=== PATIENT | female | born 1930 | race Caucasian/White ===

== ENCOUNTER 2018-11-15 05:35 | Inpatient (IN) | payer OTHER ==
[~2018-11-15] VITALS: Ht 170.2 cm; Wt 68.0 kg
[2018-11-15 06:02] LABS: BE(vivo) 2.2 mmol/L (-2 to +3); HCO3 27.9 mmol/L (22.0-26.0); PCO2 47.1 mmHg (35.0-45.0); pH 7.391 (7.360-7.450); sO2 88.3 % (92.0-98.0)
[2018-11-15 06:03] LABS: PO2 55.3 mmHg (80.0-100.0)
[2018-11-15 06:12] LABS: BASOPHILS 0.7 % (0.0-2.0); EOSINOPHILS 1.5 % (0.0-3.0); HEMATOCRIT 44.2 % (37.0-47.0); HEMOGLOBIN 14.5 gm/dL (12.0-15.0); LYMPHOCYTES 10.7 % (24.0-44.0); MCH 27.8 pg (26.0-34.0); MCHC 32.7 g/dL (28.0-37.0); MCV 84.8 fL (80.0-100.0); MONOCYTES 6.9 % (1.0-8.0); PLATELET COUNT 230 thou/uL (150-400); POLYS 80.2 % (36.0-66.0); RBC 5.22 mil/uL (4.20-5.00); RDW 15.3 % (10.5-14.5); WBC 11.2 thou/uL (4.0-11.0)
[2018-11-15 06:36] LABS: ANION GAP 8 mmol/L (7-16); BUN 34 mg/dL (7-18); CALCIUM 9.4 mg/dL (8.5-10.1); CHLORIDE 102 mmol/L (98-107); CO2 31 mmol/L (21-32); CREATININE 1.2 mg/dL (0.6-1.0); GLUCOSE 132 mg/dL (74-106); POTASSIUM 3.8 mmol/L (3.5-5.1); SODIUM 141 mmol/L (136-145)
[2018-11-15 06:40] LABS: ALBUMIN 3.8 g/dL (3.4-5.0); DIRECT BILIRUBIN < 0.1 mg/dL (<0.1-0.3); LIPASE 135 U/L (73-393); SGOT 13 U/L (15-37); SGPT 7 U/L (30-65); TOTAL BILIRUBIN 0.4 mg/dL (<0.1-1.0); TOTAL PROTEIN 7.6 g/dL (6.4-8.2)
[2018-11-15 08:09] VITALS: BP 102/101
[2018-11-15 08:46] VITALS: BP 102/101
[2018-11-15 16:14] VITALS: BP 135/75
--- NOTE | 2018-11-15 18:09 | NUR ---
PATIENT ADMITTED TO ROOM AT THIS TIME. SHE IS ALERT ORIENTED X4. DENIES PIAN. DOES HAVE SOB WITH EXERTION. EDUCATED ON NEED TO CALL FOR HELP WITH TRANSFERS. SHE IS STEADY ON HER FEET BUT WHEN SHE HAS SOB SHE BECOMES UNSTEADY. ON OXYGEN 2L. STATES AT HOME SHE HAS OXYGEN 2L PRN AND HAS NOT USED IT FOR A WHILE. ALSO STATES SHE DOES NOT TAKE ANY MEDICATION AT HOME AND DOES NOT HAVE A PHARMACY. STERIODS STARTED. WILL CONT WITH PLAN OF CARE.
[2018-11-15 20:15] VITALS: BP 158/78
--- NOTE | 2018-11-16 03:55 | NUR ---
RESTING QUIETLY TONIGHT. SHE CONITNUES TO WEAR HER OXYGEN. COOPERATIVE AND FIRENDLY. HOWEVER SHE DOES HAVE AM EXAGERRATED STARTLE REFLEX. CAREPLAN REVIEWED. ENCOURAGED TO CALL FOR ASSIST OUT OF BED. DENIES PAIN, AND HAS STATED MANY TIMES TONIGHT THAT SHE IS FEELING SO MUCH BETTER TONIGHT.
[2018-11-16 04:38] VITALS: BP 145/78
[2018-11-16 07:52] VITALS: BP 136/97
--- NOTE | 2018-11-16 12:39 | NUR ---
REC PT FROM STAFF AROUND 1215, SHE IS A&0X4, DAUGHTER IS AT BEDSIDE, GAVE HER A SNACK, TOOK PT'S VS, B/P ELEVATED D/T AMBULATING FROM W/C TO BED TO CHAIR. GAVE HER DEMO PEANUT SHELLER LIGHT AND LIGHT CONTROL, ENCOURAGED BOTH TO USE CALL LIGHT FOR ANY NEEDS
--- NOTE | 2018-11-16 13:19 | NUR ---
PATIENT TRANSFERRED FROM 3W 350 TO SICU 226, PATIENT ACCOMPANIED BY DAUGHTER, O2@2L/NC, DENIES PAIN OR DISCOMFORT, A&OX4, UP AD JOHANN WITH SBA, MEDICATION AND BLOOD SUGAR MONITORING COMPLETED, MADE COMFORTABLE AND ORIENTED TO UNIT AND STAFF, PERSONAL BELONGINGS AND CALL LIGHT IN REACH, WILL CONTINUE TO MONITOR
--- NOTE | 2018-11-16 13:28 | EKG ---
[place] [address] [address] [facility] [place] [address] ELECTROCARDIOGRAM REPORT Name: CARITO WHEELER Room #: 225-P ADM IN M.R.#: [id number] ������������������ Admission: 11/15/18 ������������������ Attend Phys: Nasreen Madrid Discharge: ������������������ Date of : [birth year] Report #: [id number] ����������������������������������������������������������������� [id number] THIS REPORT FOR: //name// [facility] ED Test Date: 2018-11-15 Test Time: 05:54:52 Pat Name: CARITO WHEELER Department: Room: [facility] Gender: F Sash Maker: PETER : 1930 Requested By: Candis Rene Order Number: [id number] MD: Larry Murillo Measurements Intervals [place] Rate: 108 P: 158 SC: 264 QRS: -85 QRSD: 149 T: 32 QT: 374 QTc: 502 Interpretive Statements Sinus tachycardia Prolonged SC interval Right bundle branch block No previous ECG available for comparison Electronically Signed On 11-16-2018 13:27:48 CDT by Larry Murillo [email or web address] ��������������������������������������������� <ELECTRONICALLY SIGNED> ���������������������������������������� By: Larry Murillo MD, [facility] ��������������������������������������������� 11/16/18 [id number] [id number] Larry Murillo MD, FACC /EPI
--- NOTE | 2018-11-16 13:45 | NUR ---
PATIENT TRANSFERED TO [facility]. DAUGHTER HERE WITH PATIENT. NO COMPLAINT OF PAIN. AOX3.
--- NOTE | 2018-11-16 18:55 | HC ---
[facility] [place] [address] CONSULTATION Name: CARITO WHEELER Room #: 225-P ADM IN M.R.#: [id number] Admission: 11/15/18 ������������������ Attend Phys: Nasreen Madrid Discharge: ������������������ Date of : [birth year] Report #: [id number] THIS REPORT FOR: //name// CC: FAM physician/PCP Nasreen Madrid REFERRING PHYSICIAN: Dr. Madrid. REASON FOR REFERRAL: Lung nodules. HISTORY OF PRESENT ILLNESS: The patient is an 88-year-old white female who presents to the ED with nausea, vomiting. Imaging study showed multiple lung nodules. A pulmonary consultation was requested. The patient states that she has been told that she has COPD for a number of years. She has been using oxygen for also several years. She has never seen a child and family therapist. She was in her usual state of health until in the morning prior to presentation when she started to develop increasing nausea and vomiting, at least 8 times. Otherwise, the patient denies any recent night sweats or chills. Denies any hemoptysis. The patient denies any recent weight loss. She has smoked for many years, but quit few years ago. PAST MEDICAL HISTORY: As mentioned above, COPD diagnosed few years ago, uses oxygen p.r.n. for the last several years; history of heart surgery, details unknown; the patient is felt to have valvular heart repair; tobacco use as mentioned above. ALLERGIES: None to medications. MEDICATIONS: Reviewed. FAMILY HISTORY: Noncontributory. SOCIAL HISTORY: Tobacco use as mentioned above. The patient denies any alcohol use. She is . She lives independently. She has children who lives in town. REVIEW OF SYSTEMS: As mentioned above, otherwise 10-point system review negative. PHYSICAL EXAMINATION: GENERAL: She is awake, alert, in no distress. VITAL SIGNS: Temperature is 98 degrees Fahrenheit, pulse is 90, respiratory [facility] [address] [place] [address] CONSULTATION Name: CARITO WHEELER Room #: 225-P [facility]#: [id number] Admission: 11/15/18 ������������������ Attend Phys: Nasreen Madrid Discharge: ������������������ Date of : [birth year] Report #: [id number] rate is 24, blood pressure 100/87 mmHg, saturation 94%. HEENT: Normocephalic, atraumatic. NECK: Supple, without lymphadenopathy or thyromegaly. CHEST: Breath sounds are moderate with mild expiratory wheezes. CARDIOVASCULAR: Normal S1, S2. There are no murmurs or gallop. There is no JVD, no carotid bruit. Pulses are 2+/4+ bilaterally. ABDOMEN: Soft, nontender, no organomegaly or masses felt. GENITOURINARY: Deferred. RECTAL: Deferred. EXTREMITIES: There is no edema, cyanosis or clubbing. LABORATORY DATA: CT chest shows a spiculated 2 lung nodules, one in the left apex, the other in the right lower lobe in the proximal lateral segment, no evidence of pulmonary embolus. CT abdomen and pelvis grossly unremarkable. Electrolytes are normal except for creatinine of 1.2. Liver enzymes are normal. WBC 11,200; hemoglobin 14.5; platelets are normal. Arterial blood gas revealed pH 7.39, pCO2 of 47, pO2 of 55 on room air. IMPRESSION: 1. Multiple lung nodules in this 88-year-old white female with a past history of tobacco history. The nodules appear to be spiculated. 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 2. Chronic obstructive pulmonary disease, CT chest shows diffuse bilateral emphysematous changes. Arterial blood gas also suggests chronic hypercapnia. Suspect moderate to severe impairment. 3. 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 4. Remote history of tobacco use. 5. Remote history of heart surgery for valvular cardiomyopathy. RECOMMENDATION AND DISCUSSION: The patient will need workup for lung nodules. This can be done as an outpatient. Given there are multiple lung nodules, I think a PET scan as an initial step for workup will be helpful. She also need a baseline PFTs regarding COPD. Agree with corticosteroids, bronchodilators, and broad-spectrum antibiotics. Thank you for this consultation. ��������������������������������������������� <ELECTRONICALLY SIGNED> ���������������������������������������� By: Blaa Andujar MD ��������������������������������������������� 11/16/18 1855 [id number] Bala Andujar MD /nt
[2018-11-16 20:09] VITALS: BP 95/54
--- NOTE | 2018-11-17 04:22 | NUR ---
PATIENT ALERT AND ORIENTED X4 WITH FORGETFULNESS. UNABLE TO USE THE CALL BUTTON APPROPRIATELY TO CALL FOR HELP. PATIENT WILL JUST GET OOB. BED ALARM ON AND IN USE SEVERAL TIMES DURING THE NIGHT. OXYGEN NASAL CANNULA IS ON AND OFF PATIENT FORGETS TO KEEP IT IN PLACE. BLOOD SUGAR MONITORED PER ORDER. GIVEN AMBIEN WHICH HELPED HER GET SOME SLEEP. WILL MONITOR.
[2018-11-17 06:29] VITALS: BP 132/74
--- NOTE | 2018-11-17 11:33 | NUR ---
ASSUMED CARE OF PATIENT THIS MORNING. PATIENT IS ALERT WITH SOME FORGETFULNESS. FALL PRECAUTIONS ARE IN PLACE. PATIENT WEARS 2L OF O2. HER OXYGEN WAS INCREASED TO 3L WHEN WORKING WITH THERAPY SINCE HER SATURATIONS WERE DROPPING. SHE BECAME TACHYCARDIC WELL WHILE AMBULATING. SHE RECEIVED LEVOFLOXACIN THIS MORNING 100ML@ 100ML/HR. HER BLOOD SUGAR WAS CHECKED THIS MORNING AND IT WAS 124. SHE DID NOT RECEIVE ANY INSULIN. PATIENT IS CURRRENTLY LYING IN BED WITH CALL LIGHT WITHIN REACH.
--- NOTE | 2018-11-17 12:07 | NUR ---
INITIAL ASSESSMENT: Pt evaluated for d/c planning needs. Reviewed chart and spoke with nurse and pt. Pt is alert and oriented. Pt lives in house with adult son. Pt was independent with ADL's. Pt has home 02 (does not recall name of provider), nebulizer and walker. Pt had home health in the distant past, but does not recall name of company. Pt plans on returning home on d/c from hospital. Will remain available to assist as needed.
[2018-11-17 17:32] VITALS: BP 131/71
--- NOTE | 2018-11-18 04:53 | NUR ---
PATINET ALERT AND ORIENTED X PERSON AND PLACE. UP WITH SBA. ACCUCHECK WAS 146, NO INSULIN NEEDED. BREATH SOUNDS DIMINISHED. SLEPT VERY LITTLE THIS SHIFT, EVEN AFTER RECEIVING A SLEEPER. DENIES PAIN.
--- NOTE | 2018-11-18 08:59 | NUR ---
PT IS A&0X2-3, VACILLATES IN MENTATION. YELLS OUT ONCE IN A WHILE, HER NORM. 02 SATURATION EXCELLENTN ON 2L, DROPPED HER TO 1L AND SHE SATS 96%, WILL CONTINUE TO MONITOR. DOES NOT WEAR AT HOME YET IT IS AVAILABLE FOR NIGHT, PRN, SHOULD SHE NEED IT, LITTLE APPETITE AND ENCOURAGED. WILL AMB IN [place] WITH HER LATER IN SHIFT. NO SKIN ISSUES, BM TODAY, ENCOURAGED HER TO USE CALL LIGHT FOR ANY NEEDS
[2018-11-18] MEDS ORDERED: ALPRAZOLAM 0.50.5 M1 PO (12:59)
[2018-11-18] MEDS ORDERED: ACETAMINOPHEN325 M1 PO (12:59)
[2018-11-18] MEDS ORDERED: LEVAQUIN 500 M500 M1 PO (12:59)
[2018-11-18] MEDS ORDERED: IPRAT-ALBUT 0.5-3 ML INH (12:59)
[2018-11-18] MEDS ORDERED: PREDNISONE 5 MG5 M1 PO (12:59)
--- NOTE | 2018-11-18 14:20 | NUR ---
PTS IV HAD BEEN REMOVED PRIOR TO THIS SHIFT ALTHOUGH REPORT STATED OTHERWISE. NO ISSUES W/SKIN OTHER THAN THE CHRONIC MOTTLING/BRUISING KIM UPPER EX
[2018-11-18 14:28] VITALS: BP 131/71
--- NOTE | 2018-11-18 14:29 | NUR ---
SPOKE WITH ARNOL/CHANTE ROBERT, AND LVM WITH SON LUIS THAT PT WAS READY TO BE D/C'D WHENEVER HE'S READY TO COME PICK HER UP AND LEFT OUR PHONE NUMBER SO HE CAN GIVE US A HEADS UP. EARLIER IN A CONVERSATION STATED THAT IT WOULDN'T TAKE HIM VERY LONG TO MAKE HIS WAY UP HERE
--- NOTE | 2018-11-18 14:30 | NUR ---
DISCHARGE NOTE: SW reviewed chart and spoke with nursing and attending physician. Pt was transferred to [facility] and is medically stable for discharge home today. Orders written for HH services. CHANTE met with pt at bedside. Pt sleeping soundly during time of SW visit. SW left voice message for pt's son, Juan, to discuss discharge plan and HH. Pt has home O2 in place at home. SW notified intake at [facility] of new referral. Pt's family to notify SW if they would like a different HH provider. Pt's family to provide transportation home. Contact [facility] placed in pt's discharge summary. CHANTE updated pt's nurse. discharge planner notified intake at [facility]. SW is available to assist should needs arise.
--- NOTE | 2018-11-18 14:32 | NUR ---
DISCHARGE PLANNING. DISCHARGE ORDERS RECEIVED. PATIENT DISCHARGING TO HOME WITH HOME HEALTH SERVICES. REFERRAL PLACED TO [facility] FOR HH NEEDS. [facility] TO REVIEW PATIENT HH NEEDS AND NOTIFY ARNOL OF ACCEPTANCE. UNIT CM/CHANTE AWARE FOLLOWING.
[2018-11-18 14:42] VITALS: BP 131/71
== END 2018-11-18 15:16 | disposition home health service (06) | DRG 189 ==
LOC: ER 05:35 → 3W 07:04 → SICU 07:04 → EROBS 07:04 → SICU 08:47 → 3W 08:48 → SICU 11-16 11:52 → ENTRNSPT 11-18 14:49 → EDTRNSPTSTS 11-18 14:53 → SICU 11-18 15:16
PROVIDERS: Emergency Medicine; ADMIT Hospitalist
DX: J96.21 Acute and chronic respiratory failure with hypoxia (principal); J44.1 Chronic obstructive pulmonary disease with (acute) exacerbation; R91.8 Other nonspecific abnormal finding of lung field; J96.22 Acute and chronic respiratory failure with hypercapnia; Z87.891 Personal history of nicotine dependence; Z95.2 Presence of prosthetic heart valve
CPT/HCPCS: 10080; 15002

== ENCOUNTER → 2018-12-29 | Outpatient (CLI) | payer OTHER ==
[~2018-12-29] MED LIST: ACETAMINOPHEN325 M1 PO; ALPRAZOLAM 0.50.5 M1 PO; IPRAT-ALBUT 0.5-3 ML INH; LEVAQUIN 500 M500 M1 PO; PREDNISONE 5 MG5 M1 PO
== END ==
LOC: PET 13:09
DX: K80.20 Calculus of gallbladder without cholecystitis without obstruction (principal); R91.8 Other nonspecific abnormal finding of lung field; I71.4 Abdominal aortic aneurysm, without rupture; M47.812 Spondylosis without myelopathy or radiculopathy, cervical region

== ENCOUNTER 2019-01-23 02:33 | Inpatient (IN) | payer OTHER ==
[~2019-01-23] VITALS: Ht 167.6 cm; Wt 75.3 kg
--- NOTE | ~2019-01-23 | HC ---
[facility] [place] [address] CONSULTATION Name: CARITO WHEELER Room #: 209-P ADM IN M.R.#: [id number] Admission: 01/23/19 ������������������ Attend Phys: Rodrick Dial MD Discharge: ������������������ Date of : [birth year] Report #: [id number] THIS REPORT FOR: //name// CC: FAM unknown Rodrick Dial DATE OF SERVICE: 01/27/2019 HISTORY OF PRESENT ILLNESS: The patient is an 89-year-old white female who was admitted with increased shortness of breath. O2 sat 88% was placed on 6 liters. She has premorbid severe COPD. She was given IV Solu-Medrol. She was diagnosed with rcvcr-zj-fvanlbv respiratory failure, hypoxemic, hypercapnic. She was also noted to have an acute exacerbation of chronic obstructive pulmonary disease. She has acute suspected diastolic heart failure. She is being monitored closely with Pulmonary Medicine and Primary Care. She has had a significant decline from her premorbid functional status and we are seeing her in rehabilitation medicine consultation. PAST MEDICAL HISTORY: Includes COPD, restless leg syndrome, heart valve replacement, and pulmonary masses. There is a question of metastatic disease and Pulmonary has been monitoring. This was diagnosed 3-4 years ago. HABITS: Former smoker, quit greater than a year ago. MEDICATIONS: Please see the full medication listing. ALLERGIES: No known drug allergies. SOCIAL HISTORY: Lives with her son, house 6 steps in, did not utilize gait aids. Son is retired, although it sounds like he has been battling with a brain tumor. The patient could stay on one level. She was receiving some palliative care with home health care. She indicates she would not on nasal prong oxygen on a regular basis and was only using as needed and more often at night. REVIEW OF SYSTEMS: Did not offer any current complaints of chest pain, shortness of breath or abdominal discomfort. PHYSICAL EXAMINATION: GENERAL: The patient is an 89-year-old white female in no obvious distress. VITAL SIGNS: Last recorded temperature 97, pulse 90, respirations 18, blood pressure 133/66. The patient is alert and oriented. HEENT: Appeared to be benign. NEUROLOGIC: Cranial nerves are grossly intact. Facies are symmetric. Nasal prong O2 is in place. She is currently on 3 liters. She has functional range of motion of both upper extremities. Strength is grade 3+ to 4-/5. DTRs are trace to 1. Lower extremities, no focal calf swelling. Functional range of [facility] [address] [place] [address] CONSULTATION Name: CARITO WHEELER Room #: 209-P [facility] IN [facility]#: [id number] Admission: 01/23/19 ������������������ Attend Phys: Rodrick Dial MD Discharge: ������������������ Date of : [birth year]/20/[birth year] Report #: [id number] motion with strength of grade 4-/5. DTRs are trace to 1. She was standby assistance for sit to stand. Gait was 120 feet standby assistance front-wheeled walker. She is min assist for bed mobility and min assist for toilet transfers and OT. Needs rest breaks. She does tend to be forgetful. ASSESSMENT: An 89-year-old white female with the following problems: 1. Pulmonary rehabilitation. 2. Fiutg-hn-hhluflx hypercapnic hypoxemic respiratory failure. 3. Acute exacerbation of chronic obstructive pulmonary disease. 4. Acute suspected diastolic heart failure. 5. Suspected lung cancer with some pulmonary nodules that are being followed. 6. Severe chronic obstructive pulmonary disease. 7. Question of dementia. She does have some decreased memory. PLAN: We are considering the patient for an acute in-hospital inpatient rehabilitation stay. We will be glad to follow along with you regarding her rehab therapy needs. ��������������������������������������������� ���������������������������������������� By: ��������������������������������������������� 1517 2101 Alex Cruz MD /nt
[2019-01-23 02:40] VITALS: BP 126/80
[2019-01-23 02:46] LABS: BE(vivo) 1.8 mmol/L (-2 to +3); HCO3 28.3 mmol/L (22.0-26.0); PO2 68.9 mmHg (80.0-100.0); pH 7.353 (7.360-7.450); sO2 92.8 % (92.0-98.0)
[2019-01-23 03:00] LABS: ABSOLUTE NEUTROPHILS 4.2 thou/uL (1.4-8.2); EOSINOPHILS 10.2 % (0.0-3.0); HEMATOCRIT 38.8 % (37.0-47.0); HEMOGLOBIN 12.6 gm/dL (12.0-15.0); LYMPHOCYTES 21.2 % (24.0-44.0); MCH 27.4 pg (26.0-34.0); MCHC 32.6 g/dL (28.0-37.0); MCV 83.9 fL (80.0-100.0); MONOCYTES 10.8 % (1.0-8.0); PLATELET COUNT 233 thou/uL (150-400); POLYS 56.8 % (36.0-66.0); RBC 4.62 mil/uL (4.20-5.00); RDW 15.7 % (10.5-14.5); WBC 7.3 thou/uL (4.0-11.0)
[2019-01-23 03:05] LABS: ANION GAP 8 mmol/L (7-16); BUN 21 mg/dL (7-18); CALCIUM 8.4 mg/dL (8.5-10.1); CHLORIDE 102 mmol/L (98-107); CO2 31 mmol/L (21-32); GLUCOSE 116 mg/dL (74-106); POTASSIUM 4.1 mmol/L (3.5-5.1); SODIUM 141 mmol/L (136-145)
[2019-01-23 03:15] LABS: ALBUMIN 3.4 g/dL (3.4-5.0); DIRECT BILIRUBIN < 0.1 mg/dL (<0.1-0.3); SGOT 15 U/L (15-37); SGPT 18 U/L (30-65); TOTAL BILIRUBIN 0.2 mg/dL (<0.1-1.0); TOTAL PROTEIN 6.8 g/dL (6.4-8.2); TROPONIN-I <0.06 ng/mL (<0.06)
[2019-01-23 06:16] VITALS: BP 120/54
--- NOTE | 2019-01-23 07:28 | EKG ---
[place] [address] [facility] [place] [address] ELECTROCARDIOGRAM REPORT Name: CARITO WHEELER Room #: 170-1 ADM IN M.R.#: [id number] ������������������ Admission: 01/23/19 ������������������ Attend Phys: Rodrick Dial MD Discharge: ������������������ Date of : [birth year] Report #: [id number] ����������������������������������������������������������������� [id number] THIS REPORT FOR: //name// [facility] ED Test Date: 2019-01-23 Test Time: 02:38:03 Pat Name: CARITO WHEELER Department: Room: 170 Gender: F School Director: BLANKA : 1930 Requested By: Meghan Little Order Number: [id number] MD: Larry Murillo Measurements Intervals [place] Rate: 121 P: -62 IN: 106 QRS: -50 QRSD: 146 T: 17 QT: 339 QTc: 481 Interpretive Statements Sinus tachycardia Right bundle branch block Compared to ECG 11/15/2018 05:54:52 No significant change was found Electronically Signed On 01-23-2019 7:27:44 CDT by Larry Murillo [email or web address] ��������������������������������������������� <ELECTRONICALLY SIGNED> ���������������������������������������� By: Larry Murillo MD, [facility] ��������������������������������������������� 01/23/19726 0238 0238 Larry Murillo MD, [facility] /EPI
[2019-01-23 07:55] VITALS: BP 153/63
[2019-01-23 12:00] VITALS: BP 140/69
[2019-01-23 16:25] VITALS: BP 144/87
[2019-01-23 19:30] VITALS: BP 132/69
--- NOTE | 2019-01-23 19:30 | NUR ---
89 YO FEMALE ADMITTED TO 209 FROM ED FOR SOA, ON 5L OF O2, UP WITH ASSIST, SL IN L FA, WILL CONTINUE TO MONITOR
[2019-01-24] VITALS (7 sets, daily range): BP systolic 116–184; BP diastolic 74–96
[2019-01-24 05:10] LABS: HEMATOCRIT 41.2 % (37.0-47.0); HEMOGLOBIN 13.6 gm/dL (12.0-15.0); MCH 27.4 pg (26.0-34.0); MCV 82.9 fL (80.0-100.0); RBC 4.96 mil/uL (4.20-5.00); RDW 15.7 % (10.5-14.5); WBC 8.3 thou/uL (4.0-11.0)
[2019-01-24 05:22] LABS: CALCIUM 9.1 mg/dL (8.5-10.1); POTASSIUM 3.7 mmol/L (3.5-5.1)
--- NOTE | 2019-01-24 05:55 | NUR ---
ASSUME CARE 1900. PT/VITALS STABLE. KANG ANY PAIN. UP AD JOHANN. SEVERE SOA NOTED WITH AEXERTION OR ACTIVITY. PT IS ADAMANT TO USING BSC AND GOES TO THE BATHROOM TO VOID. DUCATED ON THE IMPORTANCE TO USE BSC AND PREVENT THE DIFFICULTIES WITH CATCHING HER BREATH AFTER GOING ALL THE WAY TO THE BATHROOM. ASSESSMETN CHARTED. PROGRESSING MODERATELY WITH POC. PLAN IS TO CONTINUE BREATHING TREATMENTS AND STEROIDS. WILL CONTINUE TO MONITOR AND FOLLOW WITH POC
--- NOTE | 2019-01-24 19:35 | NUR ---
ASSUMED CARE AT SHIFT CHANGE, ALERT AND ORIENTED X4. AFEBRILE AND VSS. SR ON THE MONITOR AND TACHY WITH ACTIVITIES. REMAINS SOB WITH ACTIVITIES. DENIES ANY CP OR DISCOMFORT. WILL CONTINUE WITH POC.
[2019-01-25 00:40] VITALS: BP 162/81
[2019-01-25 05:52] VITALS: BP 119/59
--- NOTE | 2019-01-25 06:12 | NUR ---
ASSUME CARE 1900. PT STABLE. BP RUNS HIGH. DENIES ANY PAIN. TOLERATES ACTIVITY WELL. IMPROVED BREATHING AND RESP FUNCTION NOTED. ASSESSMENT CHARTED. PROGRESSING WITH POC. PLAN IS TO CONTINUE WITH STEROIDS AND BREATHING TREATMENTS AND ABX. WILL CONTINUE TO MONITOR AND FOLLOWW ITH POC
[2019-01-25 08:10] VITALS: BP 152/81
[2019-01-25 12:10] VITALS: BP 148/71
[2019-01-25 16:50] VITALS: BP 149/87
--- NOTE | 2019-01-25 19:27 | NUR ---
ASSUMED CARE AT SHIFT CHANGE, ALERT AND ORIENTED X BUT FORGETFUL. VSS AND AFEBRILE. PATIENT STATED THAT SHE FEELS BETTER TODAY. PROGRESSING AND WILL CONTINUE WITH POC.
[2019-01-25 20:15] VITALS: BP 168/76
[2019-01-26 04:15] VITALS: BP 138/71
--- NOTE | 2019-01-26 06:08 | NUR ---
ASSUME CARE 1900. PT/VITALS STABLE. INTERMITTENT HEAD AND BACK PAIN. TYLENOL FOR RELIEF. TOLERATES ACTIVITY WELL WELL. UP AD JOHANN. ADEQUATE REST NOTED. ST/SR ON MONITOR. A/O X 4. ASSESSMENT CHARTED. PROGRESSING WELL WITH POC. PLAN. PLAN IS TO CONTINUE WITH STEROID. BREATHING TREATMENTS AND ABX. WILL CONTINUE TO MONITORT AND FOLLOW WI POC
[2019-01-26 08:47] VITALS: BP 144/71
[2019-01-26 12:11] VITALS: BP 138/70
--- NOTE | 2019-01-26 12:20 | NUR ---
met with patient and sp with son. RN reports son interested in outside DNR form. SP with son. Patient resides in home with son, all needs on one level. Patient does not use assistive device. She has home oxygen via [employer] but no portable oxygen. Son reports he has been trying to get portable. Discussed dc home and son reports she is not ready. he reports she is weak and SOB. He and patient agreeable to HH at dc with no preference of agency. Son reports at least HH care. He reports they recently signed for services of [facility] care they have a RN practioner once a month. Appears with son patient may need post acute care, Left information in patients room regarding facilities. Therapy evals ordered. Casemgt following. Outside DNR on chart for phys and son to sign.
--- NOTE | 2019-01-26 18:13 | NUR ---
ASSUMED CARE AT SHIFT CHANGE, ALERT AND ORIENTED X4. ASSESSMENT DOCUMENTED. VSS AND AFEBRILE. SR W/BBB. C/O BACK PAIN MEDICATED INDICATED, AND REPORTED RELIEF,PROGRESSING TOWARDS GOAL, AND WILL CONTINUE WITH POC. TOWARDS GOALS
[2019-01-26 21:02] VITALS: BP 147/80
[2019-01-27 04:57] VITALS: BP 117/58
--- NOTE | 2019-01-27 05:33 | NUR ---
ASSUME CARE 1900. PT/VITALS STABLE. SR NOTED ON MONITOR. HEADACHE NOTED/TYLENOL FOR RELIEF. UP AD JOHANN. ASSESSMENT CHARTED. PROGRESSING WITH POC. PLAN IS A POSSIBLE DISCHARGE HOME TODAY. WILL CONTINUE TO MONITRO AND FOLLOW WITH POC
[2019-01-27 07:00] VITALS: BP 147/74
--- NOTE | 2019-01-27 10:35 | NUR ---
therapy evals in process. [facility] to be consulted. Discussed with patient and son. They hope patient a candidate for [facility] with goal for strengthning and home. Patient has post acute list to review.
[2019-01-27 12:00] VITALS: BP 133/66
[2019-01-27 16:00] VITALS: BP 142/93
--- NOTE | 2019-01-27 16:15 | NUR ---
ASSESSMENT CHARTED - MEDS PER SEP - GIVEN TYLENOL FOR CO'S OF HEADACHE WITH MOD EFFECT- PATIENT STATED AFTER TAKING A NAP HER HEADACHE FELT MUCH BETTER. UP TO THE CHIAR FOR MEALS AND FOR MOST OF THE AM - AUNDREA DIET AND FLUIDS WITH NO CO'S OF PAIN OR NASUEA. AMBULATING TO THE BATHROOM WITH A WALKER - SOB WITH MIN EXERTION. SEEN BY PHYS AND OCC THERAPY - CONSULT FOR DR ARMANDO- SEEN BY DR MURRIETA. - NO CO'S AT THE PRESENT TIME,
[2019-01-27 20:12] VITALS: BP 137/60
--- NOTE | 2019-01-28 04:27 | NUR ---
RECEIVED PT'S CARE AT 1930; PT. SITTING AT THE BED SIDE; AOX4; DURING ASSESSMENT PT. REQUESTED SLEEPING MEDICATION; HS MEDICATION GIVEN; AT 2300 PT. REQUESTED PRN PAIN MEDICATION; GIVEN; AFTER 0100 REQUESTED MEDICATION TO SLEEP; NO PRN PAIN MEDICATION; WARM MILK GIVEN; ABLE TO REST AFTER 0200 WITH EYES CLOSE; ASSESSMENT CHARGED; FOLLOWING POC; MONITORING; WILL PASS ON REPORT.
[2019-01-28 04:55] VITALS: BP 128/80
[2019-01-28 08:20] VITALS: BP 158/62
[2019-01-28] MEDS ORDERED: CEFDINIR300 MG PO (09:52)
[2019-01-28] MEDS ORDERED: TRAZODONE HCL50 MG PO (09:54)
[2019-01-28] MEDS ORDERED: PULMICORT0.5 MG/21 INH (09:55)
[2019-01-28] MEDS ORDERED: PREDNISONE 20 M20 MG PO (09:57)
--- NOTE | 2019-01-28 10:17 | NUR ---
patient accepted to [facility] plan transfer today. Notified patient and family. Patient will need sat/ex prior to dc for portable oxygen updated casemgt of [facility].
[2019-01-28 12:21] VITALS: BP 131/70
== END 2019-01-28 16:01 | DRG 291 ==
LOC: ER 02:33 → 2N 03:49 → EROBS 03:49 → 2N 07:55 → ENTRNSPT 01-28 15:50 → 2N 01-28 16:01
PROVIDERS: Emergency Medicine; ADMIT Family Medicine
DX: I11.0 Hypertensive heart disease with heart failure (principal); J96.21 Acute and chronic respiratory failure with hypoxia; J96.22 Acute and chronic respiratory failure with hypercapnia; I50.31 Acute diastolic (congestive) heart failure; J44.1 Chronic obstructive pulmonary disease with (acute) exacerbation; Z60.2 Problems related to living alone; G25.81 Restless legs syndrome; G47.00 Insomnia, unspecified; Z79.2 Long term (current) use of antibiotics; Z79.899 Other long term (current) drug therapy; Z87.891 Personal history of nicotine dependence; Z95.2 Presence of prosthetic heart valve
CPT/HCPCS: 10081

== ENCOUNTER 2019-01-28 11:28 | Inpatient (IN) | payer OTHER ==
[~2019-01-28] VITALS: Ht 167.6 cm; Wt 76.2 kg
--- NOTE | ~2019-01-28 | PLAN ---
[facility] [place] [address] REHAB UNIT PLAN OF CARE Name: CARITO WHEELER Room #: 515-P ADM IN M.R.#: [id number] Admission: 01/28/19 ������������������ Attend Phys: Alex Cruz MD Discharge: ������������������ Date of : 01/20/30 Report #: [id number] THIS REPORT FOR: //name// CC: Alex Cruz [employer] unknown DATE OF SERVICE: 01/30/2019 PROGRESS NOTE/OVERALL PLAN OF CARE: The patient is seen back today in followup. She is in no distress. Last recorded temperature 97.4, pulse 89, respirations 22, blood pressure 156/78. She is in good spirits. No click, no calf swelling was noted. Transfers are standby assistance. Gait 150 feet min assist with a front-wheeled walker. In occupational therapy, lower body dressing is min assist. Speech therapy, she has mild comprehensive deficits with severe memory deficits. ASSESSMENT: 1. Pulmonary rehabilitation. 2. 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 3. Acute exacerbation of chronic obstructive pulmonary disease. 4. Acute suspected diastolic heart failure. 5. Suspected lung cancer with some pulmonary nodules that are being followed by Pulmonary Medicine. 6. Severe chronic obstructive pulmonary disease. 7. Question of dementia. She does have decreased memory as noted above. PLAN: The overall plan of care is based on the preadmission screen, post-admission physician evaluation and information garnered from therapy assessments. 1. Estimated length of stay is probably 7-10 days, pending progress. 2. Medical prognosis is reasonably good. 3. Anticipated interventions includes the interdisciplinary acute inpatient rehabilitation program with goal of maximizing her functional independence, so she can hopefully return back to her prior living situation. 4. Anticipated functional outcomes would be for the patient to become modified independent at least at a walker level with mobility and ADLs as well as improvement in cognition, so that she can return back to the home setting. 5. Discharge destination would be back home with her son. He may need to assist her more than he was previously. 6. Expected therapy by discipline includes PT, OT and speech 1 hour per day each 5 days a week throughout the duration of the acute inpatient rehabilitation stay. ��������������������������������������������� ���������������������������������������� By: ��������������������������������������������� 1320 0046 Alex Cruz MD /PMT
[~2019-01-28 11:28] MED LIST changes: +CEFDINIR300 MG PO; +PREDNISONE 20 M20 MG PO; +PULMICORT0.5 MG/21 INH; +TRAZODONE HCL50 MG PO
--- NOTE | 2019-01-28 16:13 | NUR ---
ASSESSMENT CHARTED - MEDS PER SEP - NO CO'S OF PAIN OR NAUSEA. AUNDREA DIET AND FLUIDS. NO CO'S OF PAIN OR NASUEA. SEEN BY PHYS THERAPY UP TO THE BATHROOM WITH THE USE OF A WALKER, SOB WITH EXERTION - 02 AT 3 L NC. PT TRANSFERED TO REHAB THIS AFTERNOON. REPORT CALLED TO BECCA ON THE UNIT. PT TRANSFERED VIA WHEEL CHAIR TO [facility] WITH BELONGINGS. IV REMOVED PRIOR TO TRANSFER, NO CO'S AT TIME OF TRANSFER TO [facility].
[2019-01-28 16:15] VITALS: BP 166/94
--- NOTE | 2019-01-28 19:31 | NUR ---
PT ARRIVED AT 1610 FROM CCU. ORIENTED *4. DENIES PAIN AT THIS TIME. VITALS STABLE FOR THIS PT. LS COARSE/WHEEZY, ON 3L VIA NC WITH SATS 93%, SOB WITH EXERSION. SKIN DRY AND INTACT. PT UP WITH 1 MIN ASSIST, GAITBELT AND WALKER AND TOLERATED WELL. Q1H VISUAL CHECKS. CALL LIGHT WITHIN REACH. FALL PRECAUTIONS IN PLACE
[2019-01-28 23:22] VITALS: BP 134/61
--- NOTE | 2019-01-29 05:46 | NUR ---
assumed care at approx 1900 evening 01/28. pt sitting up in recliner at change of shift. 02 at 3l per n/c. pt alert and oriented x4, given much emotional support as she stated she is worried about therapy. pt up to bathroom with walker tolerating well. pt took hs meds with water awake until approx 0100 then fell asleep. pt appears to be sleeping soundly at present. bed alarm on and call light in reach. will continue to monitor.
[2019-01-29 06:01] LABS: HEMATOCRIT 38.5 % (37.0-47.0); HEMOGLOBIN 12.6 gm/dL (12.0-15.0); MCH 26.9 pg (26.0-34.0); MCHC 32.6 g/dL (28.0-37.0); MCV 82.6 fL (80.0-100.0); RBC 4.67 mil/uL (4.20-5.00); RDW 15.2 % (10.5-14.5); WBC 8.7 thou/uL (4.0-11.0)
[2019-01-29 06:13] LABS: CALCIUM 8.3 mg/dL (8.5-10.1); CREATININE 0.9 mg/dL (0.6-1.0); POTASSIUM 4.1 mmol/L (3.5-5.1)
[2019-01-29 08:25] VITALS: BP 156/78
--- NOTE | 2019-01-29 08:50 | NUR ---
CHART REVIEW, MET WITH PT, SHE A & O X 3, AND ABLE TO MAKE HER NEEDS KNOW. NOTED SHE ON OXYGEN PER NC. INTRO TO CM, TEAM MEETING AND DCP. PT STATED ' HAVE HOME OXYGEN, NO PORTABLE TANKS. LIVES AT HOME WITH SON"/PT. SHE WILL NEED SAT/EX PRIOR TO DC. HAD PAST HH AND BEEN ON [facility]. WILL CONT FOLLOWING NEEDED FOR DC NEEDS.
--- NOTE | 2019-01-29 15:59 | NUR ---
ASSUMED CARES AT 0700. PT AWAKE, ALERT AND ORIENTED*4. STATED THAT SHE COULD FALL ASLEEP LAST NIGHT TILL MIDNIGHT EVEN AFTER SLEEPING PILL WAS ADMINISTERED. LS SOUNDS REMAIN COARSE AND WHEEZY, PRODUCTIVE COUGH WITH THIN LOOSE SECRETIONS. SATS >90% ON 3-4L OXYGEN. PT CONTINUES TO HAVE SOB WITH EXERSION. HS STABLE, MILD BLE, PULSES 2+/2+. PT UP WITH 1 SBA, GAITBELT, WALKER AND O2 TANK. AMBULATED LONG DISTANCE, TAKING SHORT BREAKS IN BTN TO CATCH HER BREATHE. Q1H VISUAL CHECKS. CALL LIGHT WITHIN REACH. FALL PRECAUTIONS IN PLACE
[2019-01-29 19:45] VITALS: BP 144/57
--- NOTE | 2019-01-30 01:55 | NUR ---
UNABOE TO SLEEP DESPITE AMBIEN AND TRAZADONE LAST EVENING. NORCO FOR C/O MILD HEADACHE, 0200 HEPARIN GIVEN WHILE AWAKE ANYWAY, MONITOR LIGHT OFF, THERMOSTAT FROM 70 TO 75, WARM BLANKET, AND PBS ON WITH LOW VOLUME.
[2019-01-30 08:00] VITALS: BP 147/88
--- NOTE | 2019-01-30 19:37 | NUR ---
ASSUMED CARE OF PT AT 0715. PT IS A&OX4 AND VITAL SIGNS ARE STABLE. PT DENIED PAIN THIS SHIFT AND PARTICIPATED IN SCHEDULED THERAPIES. PT ON 3L O2 VIA NC AND SPO2 READINGS ARE STABLE. ACCU CHECKS ACHS DUE TO PO SEROIDS, BG STABLE AT THIS TIME AND CONTNIUING TO MONITOR. +1 EDEMA IN BLE MANAGED WITH ELEVATION, LUNGS CLEAR AND DIMINISHED. TOLERATED PO MEDICAITONS WHOLE WITH THIN LIQUIDS, DID REQUIRE EDUCATION ABOUT HEPARIN INJECTIONS AT BOTH ADMINISTRATIONS. AMBULATES WITH 1 PERSON MIN-STB ASSIST WITH GAIT BELT AND WALKER. FALL PRECAUTIONS IN PLACE AND NURSING WILL CONTINUE TO MONITOR.
[2019-01-30 20:30] VITALS: BP 149/70
--- NOTE | 2019-01-31 03:12 | NUR ---
assumed care at approx 1900 evening 01/30. pt sitting up in recliner at change of shift resting. 02 at 2L per n/c and pt has been taking off frequently tonight needing reminding to keep on. pt impulsive and reminded several times to use call light for assistance to bathroom. pt somewhat anxious tonight not sleeping well despite being given sleep med. pt now back to bed after voiding in toilet. bed alarm on and call light in reach. will continue to monitor.
[2019-01-31 07:48] VITALS: BP 129/66
--- NOTE | 2019-01-31 14:29 | NUR ---
ASSUMED CARES AT 0700. PT VERY SLEEPY THIS AM, STATED SHE DIDN'T SLEEP WELL LAST NIGHT. A/O*4. DENIES PAIN. MOARNING AND GROANING AND STATED THAT SHE ALWAYS MOARNS AND GROANS A HABIT. LS COARSE AND WHEEZES, DECREASED COUGH FROM PREVIOUSLY NOTED, SATS >93% ON 2L OXYGEN VIA NC. UP WITH SBA, GAITBELT AND WALKER, SOB WITH EXERSION. ALL VITALS REMAIN STABLE. Q1H VISUAL CHECKS. CALL LIGHT WITHIN REACH. FALL PRECAUTIONS IN PLACE
[2019-01-31 19:59] VITALS: BP 127/95
--- NOTE | 2019-02-01 03:18 | NUR ---
assumed care at approx 1900 evening 01/31. pt alert and oriented x4, appropriae and cooperative not as impulsive as last night. pt calling out appropriately when having to go to bathrooom. 02 at 2L per n/c. pt also sleeping better tonight getting up less to void. pt appears to be sleeping soundly at present. bed alarm on and call light in reach. will continue to monitor.
[2019-02-01 07:44] VITALS: BP 141/86
[2019-02-01 11:50] VITALS: BP 117/46
--- NOTE | 2019-02-01 15:21 | NUR ---
ASSUMED CARES AT 0700. PT AWAKE, MOARNING AND GROANING THIS AM C/O HEADACHE AND LEFT FOREARM PAIN, NORCO ADMINISTERED PER ORDER AND HEAT APPLIED ON EXTREMITY, PCP NOTIFIED. PT VERY RESTLESS AND CONFUSED, KEPT CALLING HIS SON'S NAME OVER AND OVER AND WHEN ASK ABT PAIN/DISCOMFORT RESPONDED, "AM GONNA BE OKAY". DURING BREAKFAST THIS AM PT CHOCKED ON HER AMERICAN TOAST, SHE KEPT COUGHING UNTIL THE PIECE DISLODGED FROM HER THROAT, VITALS STABLE DURING AND AFTER EPISODE. PT ENCOURAGED TO TAKE SMALL BITES AND EAT SLOWLY. LS CONGESTED, NO WHEEZES NOTED, ON 2L OXYGEN VIA NC WITH SATS >92%. SKIN REMAINS DRY AND INTACT. PT UP WITH SBA, GAITBELT AND WALKER. UNBLE TO DO THERAPY TODAY R/T COGNITION AND C/O HEADACHE. HALDOL ADMINISTERED PER ORDER AND 45 MINS LATER PT SEEMED TO CALM DOWN AND INTERACT WELL WITH HER VISITORS. Q1H VISUAL CHECKS. CALL LIGHT WITHIN REACH. FALL PRECAUTIONS IN PLACE
[2019-02-01 19:55] VITALS: BP 169/81
--- NOTE | 2019-02-02 06:21 | NUR ---
PT AMBULATING TO BATHROOM WITH STANDBY ASSIST AND IS TOLERATING WELL. DENIES PAIN. IMPULSIVE. RESTING COMFORTABLY. NO NEEDS VOICED. CALL LIGHT WITHIN REACH. WILL CONTINUE TO PROVIDE FREQUENT OBSERVATION.
--- NOTE | 2019-02-02 07:51 | HC ---
[facility] [place] [address] CONSULTATION Name: CARITO WHEELER Room #: 515-P ADM IN M.R.#: [id number] Admission: 01/28/19 ������������������ Attend Phys: Alex Cruz MD Discharge: ������������������ Date of : 01/20/30 Report #: [id number] THIS REPORT FOR: //name// CC: Alex Cruz [facility] unknown DATE OF SERVICE: 02/01/2019 ATTENDING PHYSICIAN: Alex Cruz MD. ELECTROMEDICAL EQUIPMENT TECHNICIAN: Rodrick Ruiz, PhD CLINICAL PRESENTATION: The patient is an 89-year-old white female initially admitted to the hospital on 01/23/2019 with shortness of breath. Reported is severe COPD. The patient was diagnosed with nfpaq-os-crphdhj respiratory failure, hypoxemic and hypercapnic and diastolic heart failure. Her assessment on the rehab unit included pulmonary rehabilitation, xxysm-ep-cnryjvk hypercapnic hypoxemic respiratory failure, acute exacerbation of chronic obstructive pulmonary disease, acute suspected diastolic heart failure, suspected lung cancer with pulmonary nodules being followed by Pulmonary Medicine, severe COPD and question of dementia with decreased memory. A complete description of her medical condition and history can be found in her medical records. Neuropsychological consultation was requested to provide assistance in the assessment of cognitive and emotional status and to provide recommendations and services. Prior to this most recent admission, she was living with the assistance of one of her sons in her home. She has three children. Her children live within the [place] area. The patient is a high school graduate. 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 The patient has not driven, cooked or managed finances for the last 2 years. Increased assistance to maintain safety has been provided by her children. The patient has decreased insight into the severity of her deficits. TECHNIQUES UTILIZED: Clinical interview, review of medical records, staff consultation and behavioral observation, mini mental status exam 2 standard version, verbal fluency assessment and family interview - son and [id number]-ta-xfu. EXAMINATION FINDINGS: The patient was alert and cooperative with the assessment. However, her mood is irritable and she has decreased insight into deficits as well as the purpose of her treatment. The patient is also reported to have anxiety and variable mood. Appetite is within normal limits. There are no problems reported with sleep. There is no history of alcohol abuse or previous treatment for depression or anxiety. [address] [address] CONSULTATION Name: CARITO WHEELER Room #: 515-P [facility] IN .R.#: [id number] Admission: 01/28/19 ������������������ Attend Phys: Alex Cruz MD Discharge: ������������������ Date of : 01/20/30 Report #: [id number] Her performance on the MMSE 2 brief version was extremely low with a raw score of 10 of 16. However, the patient frequently utilized the orientation board to assist with orientation to time and place. She was 3/3 for initial registration. However, she was 0/3 for immediate recall of 3 items after a brief time delay and distraction. Her performance improved on the standard version of the MMSE 2 with a raw score 23 of 30, which is a T score of 36. She was 4/5 for serial sevens, 2/2 for naming, 1/1 for repetition, 3/3 for auditory comprehension. She could read and follow a single command and write a sentence. She also could copy a simple geometric design. Performance on clock drawing was within normal limits. However, she was impulsive initially. Letter fluency, category fluency and total fluency were extremely low. Her raw score for letter fluency was 7, category fluency 11 and a total fluency raw score of 18. Standard scores were 1, which were extremely low on all three verbal fluency tests. The patient is presenting with deficits in immediate memory, verbal fluency, thought organization and decreased insight into deficits. Her mood is also irritable. Her family described her cognitive functioning as consistent with her prehospital level. However, irritability appears worse at this time. This increased irritability is may be due to the use of steroids. DIAGNOSTIC IMPRESSION: Major neurocognitive disorder (dementia), unspecified, with intermittent irritability and decreased insight -- extent to be determined, likely in the moderate range. Unspecified anxiety disorder with depression. RECOMMENDATIONS: The patient may benefit from a treatment program for depression which includes the use of antidepressant medication. She has had an order for Haldol written to help manage irritability. Her functioning will likely improve in a more familiar environment. Continued assistance will be necessary to maintain safety. Her family indicated 24-hour care is available in the home. Thank you very much for allowing me to provide the consultation on this patient. ��������������������������������������������� <ELECTRONICALLY SIGNED> ���������������������������������������� By: Rodrick Ruiz, PhD ��������������������������������������������� 02/02/19 0751 [id number] Rodrick Ruiz, PhD /nt
[2019-02-02 09:25] VITALS: BP 123/52
[2019-02-02 19:20] VITALS: BP 170/90
--- NOTE | 2019-02-02 19:56 | NUR ---
PATIENT ALERT AND ORIENTED AND PARTICIPATE IN POC AND REHAB. PATIENT STEADY WITH WALKER AND GAIT BELT.
--- NOTE | 2019-02-03 04:49 | NUR ---
ASSUMED CARE AT 1900, ASSESSMENT COMPLETED. PT C/O HEADACHE, GIVEN NORCO FOR PARTIAL RELIEF. DENIED NAUSEA, REQUESTED SNACK AT HS, GIVEN ICE CREAM. REPORTED BREATHING WITHOUT DIFFICULTY; NOTED SLIGHT WHEEZES ON THE LEFT VERSUS DIMINISHED LUNG SOUNDS ON THE RIGHT. C/O NOT BEING ABLE TO SLEEP, DESPITE RECEIVING ON SCHEDULED AND PRN SLEEPING MEDS. UP ABOUT EVERY 2 HOURS TO URINATE. WALKS WITH SLIGHTLY UNSTEADY GAIT, MAINTAINING STANDBY ASSISTANCE TO TOILET. NO OTHER CONCERNS, WILL CONTINUE TO MONITOR.
[2019-02-03 08:30] VITALS: BP 154/81
--- NOTE | 2019-02-03 14:25 | NUR ---
team meeting, recommendation: dc with hh ( pt, ot, st, nursing), [facility]. son and family to manage medication and bills. will need frequent checks and portable o2 tanks.
[2019-02-03 19:20] VITALS: BP 142/83
--- NOTE | 2019-02-03 20:29 | NUR ---
PATIENT ALERT AND ORIENTED AND PARTICIPATES IN REHAB. PATIENT WHEN NOT IN THERARPY MOSTLY SITS IN RECLINER CHAIR. PATIENT CALLS PRIOR TO NEEDING TO GO TO THE BATHROOM. SON AT BEDSIDE AND PLANS TO TAKE PATIENT HOME BUT NEEDS ASSISTANCE IN CHOOSING A HOME HEALTH AGENCY. ALSO NEEDS PORTABLE OXYGEN. HE WOULD LIKE TO SPEAK WITH KATRIN. GAVE SON, KATRIN SMITH'S PHONE NUMBER.
--- NOTE | 2019-02-04 03:13 | NUR ---
ASSESSMENT: PT REMAIN ALERT AND ORIENT TIMES THREE, UP TO BR WITH GB AND WALKER. DENIES PAIN, SOB. ON 2 LITERS. POSSIBLE DC ON SATURDAY WITH SON LUIS FOR CARE. WILL CONTINUE TO MONITOR.
[2019-02-04 08:00] VITALS: BP 167/70
--- NOTE | 2019-02-04 15:25 | NUR ---
emergency planner sent Home Health referaral to [facility]. patient to discharge this Saturday.
--- NOTE | 2019-02-04 15:47 | NUR ---
braxton received phone call from son haris rt dcp, " ok with coming home if she is ready and strong enough. [facility] we use [facility] who come out 1 per month, just need to know from that she is ready"/haris. hh referral to be sent to [facility]. information passed on to md rt pt readiness to dc home. pt will need sat/exercise tomorrow for portable o2 at home from [facility].
--- NOTE | 2019-02-04 18:23 | NUR ---
ASSUMED CARE OF PATIENT AT 0715, PATIENT ALERT X 3. UP WITH ASSIST X 1 WITH GAIT BELT AND WALKER. PATIENT C/O PAIN WITH BACK/HEAD, HYDROCODONE 1 TABLET GIVEN WITH PARTIAL RELIEF, OFFERED PAIN MEDS THIS EVENING SHE REFUSED. PATIENT HAS O2 AT 1 LITERS/NC, 2-4 LITERS/NC AT HOME. PATIENT C/O SOB AFTER PHYSICAL THERAPY, RT INCREASED O2 TO 2 LITERS/NC AND BREATHING TREATMENT DONE, SOB IMPROVED. PATIENT SAT UP IN THE CHAIR FOR MOST OF THE AFTERNOON, WORKED WITH PHYSICAL THERAPY, AND ASSISTED BACK TO BED. POSSIBLE DISCHARGE ON 02/06/19, WILL NEED ORDER FOR EXERCISE AND SATURATION TEST PRIOR TO DISCHARGE. WILL CONTINUE TO MONITOR.
[2019-02-04 19:40] VITALS: BP 146/78
--- NOTE | 2019-02-05 05:53 | NUR ---
PATIENT ALERT AND ORIENTED [place], PLACE AND TIME. ACCUCHECK WAS 102. BREATH SOUNDS DIMINISHED. O2 AR 2L/NC. DENIES PAIN. SLEPT OFF AND ON DURING NIGHT.
--- NOTE | 2019-02-05 16:47 | NUR ---
ASSUMED CARES AT 0700. PT SLEEPY, ORIENTED TO PERSON AND PLACE AND SOMETIMES SITUATION. CONFUSION NOTED. REFUSED DIFFERENT THERAPIES THIS AM BUT WAS EASILY REDIRECTED. NEEDS CUES ON PRIORITIZING CARES AND DISCHARGE PLANNING. LS CLEAR, SATS > 93% OR 2L OXYGEN. RT COMPLETED REST AND EXERCISE O2 NEEDS, PT CAN BE RA WHEN AT REST, NEEDS 2L WITH ACTIVITY. DENIES PAIN. ALL VITALS STABLE. UP WITH SBA, GAITBELT AND WALKER AND TOLERATED WELL. Q1H VISUAL CHECKS. CALL LIGHT WITHIN REACH. FALL PRECAUTIONS IN PLACE
[2019-02-05 19:58] VITALS: BP 127/66
--- NOTE | 2019-02-06 00:45 | NUR ---
PT ASSESSMENT COMPLETED AND VSS. MEDS GIVEN ORDERED AND WELL TOLERATED. FALL PRECAUTIONS IN PLACE. UP TO THE BATHROOM WITH ASST/GAIT/WALKER. SLEEPING WELL. SAT WNL ON 2L NC. WILL CONTINUE TO MONITOR FREQUENTLY.
[2019-02-06 07:20] VITALS: BP 127/64
[2019-02-06] MEDS ORDERED: REMERON15 MG PO (07:42)
[2019-02-06] MEDS ORDERED: PROTONIX 20 MG20 M1 PO (07:42)
--- NOTE | 2019-02-06 10:02 | NUR ---
pt is requiring 2L o2 with activity, pt with service with [facility]. cm team to send o2 order to [facility]. pt son anticipated to pick her up between [phone]. home hh, checking with [facility] to see if able to accept for hh, dc today.
[2019-02-06 10:19] VITALS: BP 127/64
--- NOTE | 2019-02-06 10:45 | NUR ---
DISCHARGE ORDERS RECEIVED. PATIENT IN NEED OF OXYGEN FOR HOME USE. REFERRAL FAXED TO [facility]. CALL PLACED TO [facility] TO NOTIFY. AWAITING RESPONSE. PAT[facility]. DISCHARGE/HOME HEALTH ORDERS AND SUMMARY FAXED TO [facility]. AWAITING RES[facility]ONSE FROM [facility]. FOLLOWING TO ASSIST WITH DISCHARGE.
[2019-02-06 11:13] VITALS: BP 119/60
--- NOTE | 2019-02-06 11:35 | NUR ---
ASSUMED CARES AT 0700. PT SLEEPY AND LETHARGIC, ORIENTED TO SELF, PLACE AND SITUATION. VITALS REMAIN STABLE. DENIES PAIN. LS CLEAR WITH SATS > 95% ON 2L O2 VIA NC. ABDOMEN SOFT AND ROUND, *2 LOOSE STOOLS,1 INCONTINENT. PT DENIES N&V. CONTINUES TO HAVE BLE EDEMA, EXTREMITIES ELEVATED. PT UP WITH SBA AND TOLERATED WELL.C/O WEAKNESS AND SHAKINESS THAT STARTED LAST NIGHT, PCP NOTIFIED, MONITORING PT. PT SUPPOSED TO DC THIS AFTERNOON TO HOME WITH SON, DC TEACHING TO BE COMPLETED WITH BOTH PRIOR TO DC. Q1H VISUAL CHECKS. CALL LIGHT WITHIN REACH. FALL PRECAUTIONS IN PLACE
[2019-02-06 11:44] VITALS: BP 127/64
--- NOTE | 2019-02-06 14:40 | H ---
[facility] [place] [address] HISTORY AND PHYSICAL Name: CARITO WHEELER Room #: 515-P [facility] IN M.R.#: [id number] Admission: 01/28/19 ������������������ Attend Phys: Alex Cruz MD Discharge: ������������������ Date of : [birth year]/20/[birth year] Report #: [id number] THIS REPORT FOR: //name// CC: Alex Cruz [facility] unknown DATE OF SERVICE: 01/28/2019 HISTORY AND PHYSICAL AND POST-ADMISSION PHYSICIAN EVALUATION HISTORY OF PRESENT ILLNESS: The patient is an 89-year-old white female originally admitted on 01/23/2019 with increased shortness of breath. O2 sat was 88%. She was placed on 6 liters. She has premorbid severe COPD. She was given IV Solu-Medrol. She was diagnosed with ivyzz-wm-cdptexo respiratory failure, hypoxemic, hypercapnic. She also was noted to have an acute exacerbation of chronic obstructive pulmonary disease. She has acute suspected diastolic heart failure. She has been monitored closely by Pulmonary Medicine and primary care and has had a significant decline from her premorbid functional status. She has been admitted for acute in-hospital inpatient rehabilitation. PAST MEDICAL HISTORY: Includes COPD, restless legs syndrome, heart valve replacement and pulmonary masses. There is a question of metastatic disease and Pulmonary has been monitoring. This was noted to be diagnosed 3-4 years ago. HABITS: Former smoker, quit greater than a year ago. MEDICATIONS: Please see the full medication listing. ALLERGIES: No known drug allergies. SOCIAL HISTORY: Lives with her son, house 6 steps in, did not utilize gait aids. Son is retired, although it sounds like he has been battling with a brain tumor. The patient could stay on one level. She was receiving some palliative care with home health care. She indicated that she had not been on nasal prong O2 all the time and was only using it more often at night. REVIEW OF SYSTEMS: No current complaints of chest pain, shortness of breath or abdominal discomfort. PHYSICAL EXAMINATION: GENERAL: An 89-year-old white female in no obvious distress. VITAL SIGNS: Last recorded temperature 97.7, pulse 90, respirations 20, blood pressure 166/94. NEUROLOGIC: The patient is alert, follows basic commands without difficulty. Facies are symmetric. Currently on 3 liters nasal cannula. CHEST: Some decreased breath sounds diffusely. [facility] [address] [place] [address] HISTORY AND PHYSICAL Name: CARITO WHEELER Room #: 515-P [facility] IN M.R.#: [id number] Admission: 01/28/19 ������������������ Attend Phys: Alex Cruz MD Discharge: ������������������ Date of : 01/20/30 Report #: [id number] CARDIOVASCULAR: Heart sounds are regular rate and rhythm. ABDOMEN: Bowel sounds positive, nontender. GENITOURINARY AND RECTAL: Deferred. EXTREMITIES: She has functional range of motion of both upper extremities with strength grade 3+ to 4-/5. DTRs are trace to 1. Lower extremities, no focal calf swelling. Functional range of motion with strength grade 4-/5. DTRs are trace to 1. She was standby assistance for sit to stand. The front-wheeled walker 120 up to 250 feet. She has been needing min assist to standby, needs frequent rest breaks. She also tends to be forgetful. ASSESSMENT: An 89-year-old white female with the following problems: 1. Pulmonary rehabilitation. 2. 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 3. Acute exacerbation of chronic obstructive pulmonary disease. 4. Acute suspected diastolic heart failure. 5. Suspected lung cancer with some pulmonary nodules that are being followed by Pulmonary Medicine. 6. Severe chronic obstructive pulmonary disease. 7. Question of dementia. She does have some decreased memory. PLAN: The patient is admitted for acute in-hospital inpatient rehabilitation. From a postadmission physician evaluation perspective, there are no relevant changes since the preadmission screening. Please see the above review of prior and current medical and functional conditions and comorbidities. Please see the patient's previous and current functional status. As far as risk of complications, the patient has multiple medical comorbidities as noted above. Initial plan of care involves the interdisciplinary acute inpatient rehabilitation program with the goal of maximizing her functional independence, so she can hopefully return back to her prior living situation. Measurable functional goals would be for the patient to become modified independent with transfers, mobility, ADLs and to improve with endurance. Hopefully, taper step-off or decrease her O2 needs, so that she can return back to the home setting. Her son has his own medical issues, which further complicates things. Prognosis is reasonably good with estimated length of stay fairly short. I would anticipate 7-10 days, pending progress. Potential barriers would include her multiple medical comorbidities and decreased functional status. The patient meets diagnostic criteria for an acute in-hospital inpatient rehabilitation stay. She meets the medical necessity criteria and we will have the [employer] consultant physicians continue to follow. She does have the tolerance for therapies and has appropriate discharge goals back to the home setting. ��������������������������������������������� <ELECTRONICALLY SIGNED> ���������������������������������������� By: Alex Cruz MD ��������������������������������������������� 02/06/19 1440 [id number] Alex Cruz MD /PMT
--- NOTE | 2019-02-06 16:16 | NUR ---
braxton notified by unite nurse supervisor coin machine that pt son haris thought from dr that she would be getting little portable tank that she could carry on her arm. information passed on that braxton will get this info over to jo-ann slater and will call son. braxton notified jo-ann who stated " will call son and work out the tanks for her, to go home those are most stable o2 tanks that was provided and hold more oxygen so wont run out as fast. pt and son just left, braxton called and left message with son. will cont following as needed for dc needs.
== END 2019-02-06 16:19 | disposition home health service (06) | DRG 189 ==
LOC: ENTRNSPT 02-06 15:39 → EDTRNSPTSTS 02-06 15:42
PROVIDERS: ADMIT Physical Medicine & Rehabilitation
DX: J96.21 Acute and chronic respiratory failure with hypoxia (principal); I50.31 Acute diastolic (congestive) heart failure; J44.1 Chronic obstructive pulmonary disease with (acute) exacerbation; J96.22 Acute and chronic respiratory failure with hypercapnia; G47.00 Insomnia, unspecified; F03.90 Unspecified dementia, unspecified severity, without behavioral disturbance, psychotic disturbance, mood disturbance, and anxiety; F01.50 Vascular dementia, unspecified severity, without behavioral disturbance, psychotic disturbance, mood disturbance, and anxiety; F41.9 Anxiety disorder, unspecified; F32.9 Major depressive disorder, single episode, unspecified; M79.632 Pain in left forearm; G25.81 Restless legs syndrome; Z87.891 Personal history of nicotine dependence; Z95.2 Presence of prosthetic heart valve
CPT/HCPCS: 10112

== ENCOUNTER 2019-06-15 14:09 | Inpatient (IN) | payer OTHER ==
[~2019-06-15] VITALS: Ht 167.6 cm; Wt 78.4 kg
[~2019-06-15 14:09] MED LIST changes: +PROTONIX 20 MG20 M1 PO; +REMERON15 MG PO
[2019-06-15 14:45] LABS: ABSOLUTE NEUTROPHILS 5.6 thou/uL (1.4-8.2); BASOPHILS 1.1 % (0.0-2.0); EOSINOPHILS 6.1 % (0.0-3.0); HEMATOCRIT 44.4 % (37.0-47.0); HEMOGLOBIN 14.1 gm/dL (12.0-15.0); LYMPHOCYTES 25.4 % (24.0-44.0); MCH 26.7 pg (26.0-34.0); MCHC 31.8 g/dL (28.0-37.0); MCV 83.9 fL (80.0-100.0); MONOCYTES 10.1 % (1.0-8.0); PLATELET COUNT 287 thou/uL (150-400); POLYS 57.3 % (36.0-66.0); RBC 5.29 mil/uL (4.20-5.00); RDW 15.5 % (10.5-14.5); WBC 9.8 thou/uL (4.0-11.0)
[2019-06-15 14:55] LABS: ANION GAP 8 mmol/L (7-16); BUN 32 mg/dL (7-18); CALCIUM 9.4 mg/dL (8.5-10.1); CHLORIDE 99 mmol/L (98-107); CO2 31 mmol/L (21-32); CREATININE 1.3 mg/dL (0.6-1.0); GLUCOSE 108 mg/dL (74-106); POTASSIUM 4.2 mmol/L (3.5-5.1); SODIUM 138 mmol/L (136-145)
[2019-06-15 15:07] LABS: ALBUMIN 4.1 g/dL (3.4-5.0); SGOT 15 U/L (15-37); SGPT 10 U/L (30-65); TOTAL BILIRUBIN 0.3 mg/dL (<0.1-1.0); TOTAL PROTEIN 8.2 g/dL (6.4-8.2); TROPONIN-I <0.06 ng/mL (<0.06)
[2019-06-15 17:58] LABS: MAGNESIUM 2.2 mg/dL (1.8-2.4)
[2019-06-15 18:21] LABS: PROTIME 9.6 Seconds (9.3-11.4)
[2019-06-15 18:39] LABS: APTT 28.2 Seconds (24.5-32.8); D-DIMER 2.29 ug/mLFEU (0.19-0.50)
[2019-06-15 22:54] VITALS: BP 152/78
[2019-06-15 22:59] VITALS: BP 152/78
[2019-06-15 23:01] VITALS: BP 152/78
[2019-06-15 23:28] VITALS: BP 159/85
--- NOTE | 2019-06-16 04:46 | NUR ---
PT ARRIVED VIA CART, PLACED IN ROOM 361. ADMISSION ASSESSMENTS COMPLETED. PT COOPERATIVE BUT FREQUENTLY MOANING AND GROANING. "IT'S JUST WHAT I DO." PT INITIALLY STATED SHE WAS NOT HAVING ANY PAIN BUT THEN WOULD IMMEDIATELY STATE THAT HER CHEST WAS HURTING. SHE WAS ABLE TO REPORT SHE HAS BL LUNG CANCER AND HAD REFUSED ANY TREATMENT FOR IT. PT FREQUENTLY SPEAKING IN INCOMPLETE SENTENCES AND WHEN ASKED WHAT SHE WAS TRYING TO SAY, "I DON'T KNOW." PT AT TIMES MOMENTARILY TEARFUL THEN WOULD BE LAUGHING THE NEXT MOMENT. ORIENTED TO NAME BUT INTERMITTENTLY ORIENTED TO LOCATION AND SITUATION. PT UNABLE TO RATE PAIN BY NUMERIC SCALE, FACES SCALE IN USE. NO APPARENTLY PAIN RELIEF FROM PO PAIN MED. MORPINE X1 DOSE WITH PT BECOMING GRADUALLY CALM AND GOING TO SLEEP. CONTINUE TO MONITOR.
[2019-06-16 05:02] VITALS: BP 116/61
[2019-06-16 07:21] VITALS: BP 103/59
--- NOTE | 2019-06-16 08:01 | EKG ---
[place] [id number] [facility] [place] [address] ELECTROCARDIOGRAM REPORT Name: CARITO WHEELER Room #: 361-P ADM IN M.R.#: [id number] Admission: 06/15/19 Attend Phys: Rodrick Dial MD Discharge: Date of : [birth year] Report #: [id number] THIS REPORT FOR: //name// [facility] ED Test Date: 2019-06-15 Test Time: 14:24:52 Pat Name: CARITO WHEELER Department: Room: 361 Gender: F News Intern: DEONTE : 1930 Requested By: Brien Weiss Order Number: [id number] MD: Larry Murillo Measurements Intervals Ucon Rate: 100 P: 59 CA: 197 QRS: -41 QRSD: 151 T: 47 QT: 379 QTc: 489 Interpretive Statements Sinus tachycardia Right bundle branch block Inferior infarct, old Compared to ECG 01/23/2019 02:38:03 inferior Q waves are now present Electronically Signed On 06-16-2019 8:01:46 MEDICAL ADMINISTRATOR by Larry Murillo [email or web address] <ELECTRONICALLY SIGNED> By: Larry Murillo MD, [facility] 06/16/19 0801 1424 1424 Larry Murillo MD, [facility] /EPI
[2019-06-16 11:24] VITALS: BP 126/53
[2019-06-16 15:34] VITALS: BP 126/67
[2019-06-16 19:53] VITALS: BP 130/63
--- NOTE | 2019-06-17 03:11 | NUR ---
ASSUMED CARE FROM DAY SHIFT PT MOANING AND GROANING IN PAIN DR JANE NOTIFED AND ORDER RECIEVED FOR INCREASE PAIN MEDICATION. PAIN THEN TOOK MEDICATION AND EASILY FELL ASLEEP. GROUP FITNESS ASSISTANT DEPARTMENT HEAD SHOWS NSR. RESTED WELL THROUGHOUT HOURLY ROUNDS, WILL REPORT CHANGES OR ABNORMAL FINDINGS.
[2019-06-17 04:53] VITALS: BP 138/70
[2019-06-17 08:03] VITALS: BP 146/82
--- NOTE | 2019-06-17 10:46 | NUR ---
ASSESSMENT: CM REVIEWED CHART AND MET WITH PATIENT AT THE BEDSIDE. PT WAS ADMITTED FROM HOME WHERE SHE LIVES WITH HER SON LUIS. PT HAS ABOUT 4 STEPS WITH HANDRAILS TO ENTER THE HOME AND NO STEPS ONCE INSIDE. PT NORMALLY IS ABLE TO AMBULATE INDEPENDENTLY BUT DOES HAVE A CANE AND WALKER AT HOME. PT IS CUR[facility]LY [facility]. CM SPOKE WITH PATIENTS SON WHO WANTED TO SPEAK WITH PHYSICIAN, CM NOTIFIED DR JANE WHO SPOKE WITH SON AND PLANS IS FOR PATIENT TO LIKELY GO TO SNF ON POSSIBLY SATURDAY. CM SPOKE WITH SON AND LEFT A SNF LIST AT THE BEDSIDE AND REQUESTED HIM TO CALL CM SO REFERRALS COULD BE SENT OUT MP. CM WILL CONTINUE TO FOLLOW TO ASSIST NEEDED.
[2019-06-17 11:55] VITALS: BP 118/63
[2019-06-17 15:51] VITALS: BP 150/123
--- NOTE | 2019-06-17 19:50 | NUR ---
pt is A&OX3, PT 's vs are stable, pt is continuing o2 4L/MIN/NC, pt has SOB with activities.
[2019-06-17 20:46] VITALS: BP 134/68
--- NOTE | 2019-06-18 02:11 | NUR ---
ASSUMED CARE FROM DAY SHIFT PT C/O GENERALIZED PAIN , PAIN MEDICATION REQUESTED AND GIVEN , PT UP TO BATHROOM TOLERATED WELL, DENIES SOA. RESP EASY. DISCUSSED PLAN OF CARE AND AGREEABLE. PYRIDINE RECOVERY OPERATOR SHOWS NSR. PT APPEARS TO BE RESTING WELL THROUGHOUT HOURLY ROUNDS.
[2019-06-18 04:57] VITALS: BP 123/54
[2019-06-18 07:30] VITALS: BP 117/85
[2019-06-18 11:29] VITALS: BP 138/82
[2019-06-18 15:37] VITALS: BP 124/67
--- NOTE | 2019-06-18 16:31 | NUR ---
ASSUMED CARE OF PT AT 0700. PT AOX3-4, VOICING NO COMPLAINTS/CONCERNS. MOANING AND GROANING IN ROOM THROUGHOUT THE DAY, SAYS THIS IS NORMAL FOR HER. SITTING ON SIDE OF BED THROUGHOUT THE DAY. PULM CONCERNED ABOUT INCREASED CONFUSION. WILL CONT TO MONITOR.
[2019-06-18 19:30] VITALS: BP 126/62
[2019-06-19 05:12] VITALS: BP 151/69
[2019-06-19 07:23] VITALS: BP 117/60
--- NOTE | 2019-06-19 07:45 | NUR ---
PT STATES SHE IS HAVING PAIN, GAVE SCHEDULED PAIN MEDICATION. DURING ROUNDS SHE STATES SHE IS STILL HAVING PAIN, OFFERED PRN, PT REFUSES. PT ALSO STATES SHE IS HAVING SOME NAUSEA, GAVE SPRITE WITH GOOD RESULTS RELIEVING NAUSEA. PT CRIES OUT FREQUENTLY. VSS, AND TELE SHOWS SINUS TACH W/BBB.
[2019-06-19] MEDS ORDERED: OXYCONTIN15 MG PO (10:00)
--- NOTE | 2019-06-19 11:02 | NUR ---
PATIENT TO DC TO [facility] SKILLED TODAY. [facility] TRANSPORT FOR 11;45 TODAY. REQUESTED CHART COPY. FAXED TRANSFER FORMS. NOTIFIED PATIENT AND SON AND RN OF DC AND TIMEFRAME. NO FURTHER NEEDS
--- NOTE | 2019-06-19 12:12 | NUR ---
Assumed care approx. 0700 this AM. DC orders obtained. Patient left to [facility] at 1200 with transport via wheelchair van. IV and tele dc'd. All belongings sent with patient. Chart copy and new presciption sent with patient. Report called to facility at 1205 to RN on the unit.
== END 2019-06-19 12:00 | DRG 313 ==
LOC: ER 14:09 → EROBS 21:23 → 3W 21:23
PROVIDERS: Emergency Medicine; ADMIT Family Medicine
DX: R07.9 Chest pain, unspecified (principal); J96.11 Chronic respiratory failure with hypoxia; J96.12 Chronic respiratory failure with hypercapnia; M81.0 Age-related osteoporosis without current pathological fracture; J44.9 Chronic obstructive pulmonary disease, unspecified; F03.90 Unspecified dementia, unspecified severity, without behavioral disturbance, psychotic disturbance, mood disturbance, and anxiety; R91.8 Other nonspecific abnormal finding of lung field; I10 Essential (primary) hypertension; Z85.118 Personal history of other malignant neoplasm of bronchus and lung; Z79.899 Other long term (current) drug therapy; Z87.891 Personal history of nicotine dependence; Z95.2 Presence of prosthetic heart valve
CPT/HCPCS: 10879